=== PATIENT | male | born 1995 | race Caucasian/White ===

== ENCOUNTER 2022-06-18 16:27 | Emergency (ER) | payer SELFPAY ==
--- NOTE | ~2022-06-18 | CT_ITS ---
EXAMINATION: CT soft tissue neck w con DATE: 06/18/2022 20:12 INDICATION: Right-sided neck mass TECHNIQUE: Computed tomography (CT) of the neck was performed with 75 mL Omnipaque-350 intravenous co ntrast. Automated exposure control and iterative reconstruction technique were employed. The dose-sanya gth product was 591.66 mGy-cm. COMPARISON: None FINDINGS: Orbits are normal. The paranasal sinuses are clear. Visualized sinuses and mastoid aircells are well aerated. Submandibular and parotid glands are symmetric. Thyroid gland is unremarkable. 3.2 x 2.0 x 2 .0 cm second branchial cleft cyst along the anteromedial margin of the right sternocleidomastoid musc le. Bilateral cervical lymphadenopathy with numerous lymph nodes in the submandibular, jugular chains and posterior cervical triangles which are more notable for number than size. All measure less than 1 cm in maximal short axis diameter with the exception of a 5.0 x 3.4 x 2.5 cm level 2 right jugular chain lymph node located along the posterior angle of the mandible and corresponding 3.9 x 2.8 x 1.9 cm level 2 left jugular chain lymph node. No other masses identified. The right jugular chain lymph n ode and brachial cleft cyst both exert mass effect upon the more posterior right internal jugular vei n which remains patent. The vasculature is otherwise unremarkable. Airway and apices of the lungs are clear. Typical triangular appearance of mixed fat and soft tissue density in the anterior mediastinu m consistent with residual thymic tissue. The superior mediastinum is otherwise unremarkable with no lymphadenopathy. Bones are unremarkable. IMPRESSION: 1. Bilateral cervical lymphadenopathy with prominently enlarged bilateral level 2 jugular chain lymph nodes and numerous additional jugular chain, posterior triangle and submandibular lymph nodes which are more notable for number than size. 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 2. 3.2 x 2.0 x 2.0 cm right-sided second branchial cleft cyst. Reviewed, dictated and finalized at location A. [facility] [employer] IMPRESSION: 1. Bilateral cervical lymphadenopathy with prominently enlarged bilateral level 2 jugular chain lymph nodes and numerous additional jugular chain, posterior t riangle and submandibular lymph nodes which are more notable for number than si ze. 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 2. 3.2 x 2.0 x 2.0 cm right-sided second branchial cleft cyst.
[2022-06-18 16:44] VITALS: BP 139/87; PULSE 103; RESP 14; TEMP 37; O2SAT 99
--- NOTE | 2022-06-18 18:20 | ED.SKABFB ---
HPI - Skin/Abscess/Foreign Bdy General Chief complaint: Skin/Abscess/Foreign Body Stated complaint: swollen R lymph nodes Time Seen by Provider: 06/18/22 18:09 History of Present Illness HPI narrative: Patient is a 26-year-old male here for evaluation of right-sided facial swelling for the past 2 weeks. Patient states that he was seen in urgent care facility upon symptom onset, had a strep test that was negative. He was placed on a Medrol Dosepak and Augmentin which did improve the swelling but states that he completed the course several days ago and the swelling returned. He states that he has had a fullness type pain but it is not severe in nature. No sore throat, ear pain, fevers or chills. He denies any trismus, and he is tolerating his secretions. Related Data Home Medications Medication Instructions Recorded Confirmed cetirizine 10 mg capsule (Zyrtec) 10 mg PO DAILY PRN 05/29/21 05/29/21 clonazepam 0.5 mg tablet 1 mg PO QHS PRN 05/29/21 05/29/21 Allergies Allergy/AdvReac Type Severity Reaction Status Date / Time No Known Allergies Allergy Unknown Verified 05/29/21 11:12 Review of Systems Review of Systems: Gen.: Denies fevers or chills Eyes: Denies eye pain or visual change ENT: Reports right-sided neck fullness. Respiratory: Denies shortness of breath or cough CV: Denies chest pain or palpitations GI: Denies abdominal pain nausea, emesis or diarrhea denies burning, urgency, frequency or hematuria Musculoskeletal: Denies back pain or muscle pain Neuro: Denies numbness, tingling, weakness or focal weakness Skin: Denies rash Except as documented, all other systems reviewed and negative [facility] Past Medical History Medical History ADD (attention deficit disorder) without hyperactivity Adult BMI 32.0-32.9 kg/sq m BMI 30.0-30.9,adult Depression with anxiety Family History Family History Father Normal echocardiogram Mother No problems noted. Sibling No problems noted. 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 There is no overlying erythema or tenderness to palpation. Posterior oropharynx is clear. Pulm: Respirations even and unlabored, symmetric thorax expansion, no audible stridor or visible cyanosis CV: Regular rate per telemetry GI: No distension, no voluntary/involuntary guarding Neuro: AOx4, moves all extremities without apparent difficulty or weakness, follows commands Skin: No jaundice, no visible bruising, rashes, lesions or wounds on exposed skin Psych: Normal mood/affect, insight/judgement good, adequate fund of knowledge, recent/remote memory intact Course Vital Signs Vital signs: Vital Signs Temperature 98.6 F 06/18/22 16:44 Pulse Rate 103 H 06/18/22 16:44 Respiratory Rate 14 06/18/22 16:44 Blood Pressure 139/87 06/18/22 16:44 Pulse Oximetry 99 06/18/22 16:44 Oxygen Delivery Room Air 06/18/22 16:44 Temperature 98.6 F 06/18/22 16:44 Pulse Rate 103 H 06/18/22 20:17 Respiratory Rate 20 06/18/22 20:17 Blood Pressure 148/82 H 06/18/22 20:17 Pulse Oximetry 100 06/18/22 20:17 Oxygen Delivery Room Air 06/18/22 16:44 MDM - Skin/Abscess/Foreign Bdy MDM Narrative Medical decision making narrative: 26-year-old male here for evaluation of right-sivan
[2022-06-18 20:04] LABS: Estimated CRCL calculation 78 ml/min; Estimated Glomerular Filt Rate > 60
[2022-06-18 20:10] LABS: Hematocrit 45.2 % (42.0-52.0); Hemoglobin 14.7 g/dL (14.0-18.0); Mean Corpuscular HGB Conc 32.5 g/dl (32-36); Mean Corpuscular Hemoglobin 29.2 pg (26-34); Mean Corpuscular Volume 89.7 fl (80-100); Mean Platelet Volume 10.4 fl (7.4-10.4); Platelet Count Result 248 k/mm3 (150-375); Red Blood Count 5.04 M/mm3 (4.6-6.20); Red Cell Distribution Width 13.2 % (11.5-14.5); White Blood Count 14.6 K/mm3 (4.5-10.0)
[2022-06-18 20:17] VITALS: BP 148/82; PULSE 103; RESP 20; O2SAT 100
[2022-06-18 20:40] LABS: Band Neutrophils Percent 1 % (0-6); Lymphocytes Absolute Manual 8.76 K/mm3 (1.1-4.5); Monocytes Absolute Manual 0.87 K/mm3 (0.1-0.90); Monocytes Percent Manual 6 % (3-9); Monoscreen Positive (Negative); Negative Monotest Control Negative (Negative); Neutrophils Absolute Manual 4.96 K/mm3 (1.3-6.7); Neutrophils Percent Manual 33 % (46-73); Positive Monotest Control Positive (Positive); Total Cells Counted 100
[2022-06-18 20:41] LABS: Platelet Estimate Adequate (Adequate); Schistocytes None Seen (NORMAL)
[2022-06-18 20:45] LABS: Alanine Aminotransferase 151 U/L (6-50); Albumin Level 4.6 g/dL (3.5-5.1); Alkaline Phosphatase 143 U/L (38-126); Anion Gap 10 mmol/L (8-16); Aspartate Amino Transferase 90 U/L (17-59); Bilirubin,Total 0.6 mg/dL (0.2-1.3); Blood Urea Nitrogen 16 mg/dL (9-20); Calcium 9.1 mg/dL (8.4-10.2); Carbon Dioxide 28 mmol/L (22-30); Chloride 98 mmol/L (98-107); Estimated CRCL calculation 84 ml/min; Estimated Glomerular Filt Rate > 60; Glucose 85 mg/dL (65-110); Sodium 136 mmol/L (137-145)
[2022-06-18 21:07] LABS: Potassium 3.8 mmol/L (3.4-5.0)
== END 2022-06-18 21:32 | disposition home or self-care (01) ==
PROVIDERS: Emergency Provider Physician Assistant; PCP Family Medicine
DX: B27.90 Infectious mononucleosis, unspecified without complication (principal); F98.8 Other specified behavioral and emotional disorders with onset usually occurring in childhood and adolescence; F32.9 Major depressive disorder, single episode, unspecified; F41.9 Anxiety disorder, unspecified
CPT/HCPCS: 70491; 80053; 85025; 86308; 99284; Q9967

== ENCOUNTER 2023-05-19 07:06 | Outpatient (CLI) | payer OTHER, SELFPAY ==
[2023-05-19 07:38] LABS: Basophils Percent Auto 0.4 % (0.2-1.2); Eosinophils Absolute Auto 0.2 K/mm3 (0-0.3); Eosinophils Percent Auto 1.9 % (0-4.4); Hematocrit 45.9 % (42.0-52.0); Immature Granulocyte Absolute 0.02 K/mm3 (0.00-0.031); Immature Granulocyte Percent A 0.3 % (0-0.5); Lymphocytes Absolute Auto 2.83 K/mm3 (0.9-3.2); Lymphocytes Percent Auto 36.3 % (18.3-44.2); Mean Corpuscular HGB Conc 32.7 g/dl (32-36); Mean Corpuscular Hemoglobin 29.4 pg (26-34); Mean Corpuscular Volume 89.8 fl (80-100); Mean Platelet Volume 10.9 fl (7.4-10.4); Monocytes Absolute Auto 0.6 K/mm3 (0.1-0.6); Neutrophils Absolute Auto 4.1 K/mm3 (1.3-6.7); Neutrophils Percent Auto 53.1 % (45.5-73.1); Platelet Count Result 299 k/mm3 (150-375); Red Blood Count 5.11 M/mm3 (4.6-6.20); Red Cell Distribution Width 12.4 % (11.5-14.5); White Blood Count 7.8 K/mm3 (4.5-10.0)
[2023-05-19 07:52] LABS: Alanine Aminotransferase 25 U/L (6-50); Albumin Level 4.6 g/dL (3.5-5.1); Alkaline Phosphatase 87 U/L (38-126); Anion Gap 8 mmol/L (8-16); Aspartate Amino Transferase 24 U/L (17-59); Bilirubin,Total 0.4 mg/dL (0.2-1.3); Blood Urea Nitrogen 16 mg/dL (9-20); Calcium 9.4 mg/dL (8.4-10.2); Carbon Dioxide 30 mmol/L (22-30); Chloride 100 mmol/L (98-107); Cholesterol 127 mg/dL (0-200); Estimated Glomerular Filt Rate > 60; Glucose 95 mg/dL (65-110); HDL Direct 59 mg/dL; Potassium 3.7 mmol/L (3.4-5.0); Sodium 138 mmol/L (137-145); Triglycerides 108 mg/dL (<150)
[2023-05-19 08:02] LABS: LDL Cholesterol Direct 50 mg/dL
[2023-05-21 13:28] LABS: Amphetamines NEGATIVE ng/mL (<500); Barbiturates NEGATIVE ng/mL (<300); Benzodiazepines NEGATIVE ng/mL (<100); Cocaine Metabolite NEGATIVE ng/mL (<150); Marijuana Metabolite NEGATIVE ng/mL (<20); Methadone Metabolite NEGATIVE ng/mL (<100); Opiates NEGATIVE ng/mL (<100); Oxidant NEGATIVE mcg/mL (<200)
== END 2023-05-19 07:07 | disposition home or self-care (01) ==
PROVIDERS: PCP Family Medicine; Visit Provider Nurse Practitioner
DX: Z13.220 Encounter for screening for lipoid disorders (principal); Z13.29 Encounter for screening for other suspected endocrine disorder; Z79.899 Other long term (current) drug therapy
CPT/HCPCS: 36415; 80053; 80061; 80307; 85025

== ENCOUNTER 2025-01-24 09:00 | Outpatient (CLI) | payer SELFPAY ==
[2025-01-24 09:53] LABS: Hematocrit 48.1 % (42.0-52.0); Hemoglobin 15.6 g/dL (14.0-18.0); Immature Granulocyte Percent A 0.5 % (0-0.5); Lymphocytes Absolute Auto 2.13 K/mm3 (0.9-3.2); Mean Corpuscular HGB Conc 32.4 g/dl (32-36); Mean Corpuscular Hemoglobin 28.9 pg (26-34); Mean Corpuscular Volume 89.1 fl (80-100); Nucleated Red Blood Cells Absolute Auto 0.000 K/mm3 (0.0-0.012); Nucleated Red Blood Cells Perc 0.0 % (0.0-0.2); Platelet Count Result 299 k/mm3 (150-375); Red Blood Count 5.40 M/mm3 (4.6-6.20); White Blood Count 6.2 K/mm3 (4.5-10.0)
--- OUTSIDE RECORDS SUMMARY | 2025-01-24 10:06 | XMS_ITS | Clinical Summary ---
Author Organization [facility] Address [address] [place] [address] Care Team Providers Care Button Pusher Name Role Phone Unavailable Primary Care Provider Unavailabl e Source Comments [facility],non-owned Affiliates and Associated Physician Practices is amultiple site organization consisting of ambulatory clinics and hospital sitesin [place], [place], [place] and [place]. This disclosure is being madepursuant to the Care Everywhere program and may not contain all information available regarding this patient. Last updated [employer] Allergies No known active allergies Medications * Be aware that medications may not be up to date on this document. Alwaysverify current medications with the patient. fluticasone propionate (FLONASE) 50 MCG/ACT nasal spray [place] 1 [place] into each nostril once daily. 1 Bottle 4 3 Active Additional Information Patient not taking.Reported on 04/28/2015 albuterol HFA (PROVENTIL;CLEO JENIFFER;PROAIR) 108 (90 BASE) MCG/ACT inhaler Inhale 2 Puffs by mouth every 4 hours as needed for Wheezing or Cough. OK TO SUBSTITUTE ANY BRAND. 1 Inhaler 0 3 Active Additional Information Patient not taking.Reported on 04/28/2015 AeroChamber Plus (AEROCHAMBER) Use as directed. May substitute for covered brand. 1 Each 0 3 Active Additional Information Patient not taking.Reported on 04/28/2015 cetirizine (ZYRTEC) 10 MG tablet TAKE 1 TABLET BY MOUTH DAILY. 30 Tab 5 7 Active cetirizine (ZYRTEC) 10 MG tablet TAKE 1 TABLET BY MOUTH DAILY. 30 tablet 7 Active Additional Information Patient not taking.Reported on 05/14/2019 Covid-19, Pfizer, booster 12y+ bivalent mRNA vaccine, Motta Cap, 30 MCG/0.3ML SUSP injection PHARMACIST TO ADMINISTER 0.3 ML INTO LEFT DELTOID MUSCLE. 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 VIS GIVEN: 02/10/22 0.3 mL 2 Active influenza quadrivalent vac (Flulaval Quad) injection PHARMACIST TO ADMINISTER 0.5 ML'S INTO THE LEFT DELTOID MUSCLE. CIRCUS SUPERVISOR: [email or web address], VIS: 12/14/2020, LOT: [id number], EXPIRATION DATE: 11/07/22, VIS GIVEN: 02/10/22 0.5 mL 2 Active Active Problems No known active problems Immunizations Immunization Administration Dates Next Due Covid Pfizer primary monoval ent 12+ yr 0.3mL Purple cap 05/25/2020,05/03/2020 DPT 11/03/2000, 7,02/13/1996,1995,1995 HEP B VACCINE, PED/ADOL 05/23/1996,1995, HIB BOOSTER 06/02/1996, 6,1995,1995 MMR 11/03/2000,08/22/1996 POLIO IPV 11/03/2000 POLIO OPV 02/23/1996,1995,1995 PPD 08/22/2006,11/03/2000 TDAP (7yrs+) 10/17/2013,12/18/2005 Social History Tobacco Use Types Packs/Day Years Used Date Smoking Tobacco: Never Smokeless Tobacco: Never Alcohol Use Standard Drinks/Week Comments Not Asked 0 (1 standard drink = 0.6 oz pur e alcohol) Sex and Gender Information Value Date Recorded Sex Assigned at Not on file Legal Sex Male 5:37 AM PHYSICIAN/ALLERGY/IMMUNOLOGY Gender Identity Not on file Sexual Orientation Not on file Last Filed Vital Signs Vital Sign Reading Time Taken Comments Blood Pressure 118/70 05/14/2019 4:44 PM PHYSICIAN/ALLERGY/IMMUNOLOGY Pulse 69 05/14/2019 4:44 PM PHYSICIAN/ALLERGY/IMMUNOLOGY Temperature 36.9 C (98.4 F) 05/14/2019 4:44 PM PHYSICIAN/ALLERGY/IMMUNOLOGY Respiratory Rate 16 05/14/2019 4:44 PM PHYSICIAN/ALLERGY/IMMUNOLOGY Oxygen Saturation 99% 05/14/2019 4:44 PM PHYSICIAN/ALLERGY/IMMUNOLOGY Inhaled Oxygen Concentration - - Weight 97.5 kg (215 lb) 05/14/2019 4:44 PM PHYSICIAN/ALLERGY/IMMUNOLOGY Height 180.3 cm (5' 11) 05/14/2019 4:44 PM PHYSICIAN/ALLERGY/IMMUNOLOGY Body Mass Index 29.99 05/14/2019 4:44 PM PHYSICIAN/ALLERGY/IMMUNOLOGY Plan of Treatment Health Maintenance Due Date Last Done Comments HIV SCREENING 08/20/2010 HEPATITIS C SCREENING 08/16/2013 HPV VACCINE (1 - 3-dose SCDM series) 08/20/2022 DTAP/TDAP/TD VACCINES (8 - Td or Tdap) 10/18/2023 10/17/2013, 12/18/2005, 11/03/2000, Additional history exists DEPRESSION SCREENING 05/11/2024 COVID-19 VACCINE ( season) 2025 02/10/2022, 03/14/2021, 05/31/2020, Additional history exists INFLUENZA VACCINE (#1) 2025 2, 02/18/2020 (Done Outside Per Patient), 02/28/2019 (Done Outside Per Patient), Additional history exists ZOSTER VACCINE (1 of 2) 08/20/2045 HEPATITIS B VACCINE Completed 05/23/1996, 1995, 1995 HIB VACCINE Aged Out 06/02/1996, 06/1995, 1995, Additional history exists No longer eligible based on patient's age to complete this topic MENINGOCOCCAL (Group B) VACCINE SHARED DECISION-MAKING Aged Out No longer eligible based on patient's age to complete this topic MENINGOCOCCAL GROUPS A/C/Y/W VACCINE Aged Out No longer eligible based on patient's age to complete this topic PNEUMOCOCCAL VACCINE Aged Out No long er eligible based on patient's age to complete this topic Goals Goal Patient Goal Type Associated Problems Recent Progress Patient-Stated? Author Use safety retraint in car Lifestyle On track( 015 9:41 AM PHYSICIAN/ALLERGY/IMMUNOLOGY) Suzy Enamorado, BASHIR Insurance [facility] Address: [address] [address]
[2025-01-24 10:14] LABS: Alanine Aminotransferase 46 U/L (6-50); Albumin Level 4.7 g/dL (3.5-5.1); Alkaline Phosphatase 79 U/L (38-126); Anion Gap 9 mmol/L (4-12); Aspartate Amino Transferase 38 U/L (17-59); Bilirubin,Total 0.4 mg/dL (0.2-1.3); Blood Urea Nitrogen 18 mg/dL (9-20); Calcium 9.4 mg/dL (8.4-10.2); Carbon Dioxide 29 mmol/L (22-30); Chloride 101 mmol/L (98-107); Cholesterol 131 mg/dL (0-200); Estimated Glomerular Filt Rate > 60; Glucose 92 mg/dL (65-110); HDL Direct 53 mg/dL; Potassium 4.5 mmol/L (3.4-5.0); Sodium 139 mmol/L (137-145); Total Protein 8.2 g/dL (6.3-8.2); Triglycerides 63 mg/dL (<150)
[2025-01-28 18:09] LABS: Summary Report (Summary) FINAL (.)
== END 2025-01-24 09:01 | disposition home or self-care (01) ==
LOC: ANHLAB 09:00
PROVIDERS: PCP Nurse Practitioner; Visit Provider Nurse Practitioner
DX: Z13.220 Encounter for screening for lipoid disorders (principal); F90.0 Attention-deficit hyperactivity disorder, predominantly inattentive type; Z79.899 Other long term (current) drug therapy; Z13.29 Encounter for screening for other suspected endocrine disorder
CPT/HCPCS: 36415; 80053; 80061; 80307; 85025